=== PATIENT | female | born 1980 | race Hispanic/Latino ===

== ENCOUNTER 2020-02-13 11:42 | Emergency (ER) | payer OTHER, SELFPAY | END 2020-02-13 12:30 | disposition home or self-care (01) | LOC: ERS 11:42 | DX: Z03.818 Encounter for observation for suspected exposure to other biological agents ruled out (principal); I10 Essential (primary) hypertension; M19.90 Unspecified osteoarthritis, unspecified site | CPT/HCPCS: 99281 ==